=== PATIENT | male | born 1990 | race Caucasian/White ===

== ENCOUNTER 2025-03-06 06:26 | Emergency (ER) | payer OTHER ==
[~2025-03-06] VITALS: Ht 172.7 cm; Wt 66.3 kg
[2025-03-06 06:28] VITALS: TEMP 36.8; O2SAT 99
[2025-03-06] MEDS: LIDOCAINE HCL 1% 20ML VIAL INFIL ONE (06:53)
[2025-03-06] MEDS: TETANUS, DIPHTHERIA, PERTUSSIS VAC/PF 0.5ML (>10YR OLD) IM ONE (07:00)
[2025-03-06 08:51] VITALS: BP 126/80; PULSE 75; RESP 12; O2SAT 100
== END 2025-03-06 08:57 | disposition home or self-care (01) ==
LOC: ER 06:26
DX: S61.211A Laceration without foreign body of left index finger without damage to nail, initial encounter (principal); X58.XXXA Exposure to other specified factors, initial encounter; Y93.89 Activity, other specified; Y92.89 Other specified places as the place of occurrence of the external cause; Y99.8 Other external cause status
CPT/HCPCS: 73130; 90715; 12002; 90471; 99283; J2003; Z7610